=== PATIENT | male | born 1985 | race Caucasian/White ===

== ENCOUNTER 2022-11-09 19:46 | Emergency (ER) | payer SELFPAY ==
--- NOTE | 2022-11-09 20:43 | ER ---
Nurse's Notes [facility] Name: Abhinav Laboy Age: 37 yrs Sex: Male : 1985 Arrival Date: 11/09/2022 Time: 19:49 Bed 9 Private MD: Diagnosis: Sprain of ankle;Sprain of unspecified ligament of right ankle Presentation: 11/09 19:54 Chief complaint: Patient states: "I injured it on Tuesday, but I have not been able to tw5 put any weight on it since. I tried just taking care of it at home, wrapping it, putting ice on it, elevating it. It just isn't getting any better. I am worried that it might be broken.". Coronavirus screen: Vaccine status: Patient reports being unvaccinated. Ebola Screen: Patient negative for fever greater than or equal to 101.5 degrees Fahrenheit, and additional compatible Ebola Virus Disease symptoms Patient denies exposure to infectious person. Patient denies travel to an Ebola-affected area in the 21 days before illness onset. Initial Sepsis Screen: Does the patient meet any 2 criteria? HR > 90 bpm. Does the patient have a suspected source of infection? No. Patient's initial sepsis screen is negative. Risk Assessment: Do you want to hurt yourself or someone else? Patient reports no desire to harm self or others. Onset of symptoms was November 07, 2021. 19:54 Method Of Arrival: Wheelchair tw5 19:54 Acuity: PEPE 4 tw5 Triage Assessment: 19:56 General: Appears uncomfortable, Behavior is calm, cooperative, appropriate for age. tw5 Pain: Pain currently is 10 out of 10 on a pain scale. Musculoskeletal: Swelling present in right ankle. Historical: - Allergies: 19:56 No Known Allergies; tw5 - Home Meds: 19:56 None [Active]; tw5 - PMHx: 19:56 None; tw5 - PSHx: 19:56 None; tw5 - Immunization history:: Flu vaccine is not up to date. - Social history:: Smoking status: Patient reports the use of cigarette tobacco products, smokes one pack cigarettes per day. Reported history of juuling and/or vaping. Screenin:57 [facility] ED Fall Risk Assessment (Adult) History of falling in the last 3 months, tw5 including since admission. Abuse screen: Denies threats or abuse. Denies injuries from another. Nutritional screening: No deficits noted. Tuberculosis screening: No symptoms or risk factors identified. Assessment: 20:06 General: Appears in no apparent distress. uncomfortable, Behavior is calm, cooperative, eh3 appropriate for age. Pain: Complains of pain in right ankle. Neuro: Level of Consciousness is awake, alert, obeys commands, Oriented to person, place, time, situation. Cardiovascular: Capillary refill < 3 seconds Patient's skin is warm and dry. Respiratory: Airway is patent Respiratory effort is even, unlabored, Respiratory pattern is regular, symmetrical. GI: No signs and/or symptoms were reported involving the gastrointestinal system. : No signs and/or symptoms were reported regarding the genitourinary system. EENT: No signs and/or symptoms were reported regarding the EENT system. Derm: Bruising that is dark purple, on right leg and right ankle. Musculoskeletal: Circulation, motion, and sensation intact. Vital Signs: 19:54 BP 142 / 90; Pulse 96; Resp 18; Temp 99(O); Pulse Ox 99% ; Weight 113.4 kg; Height 6 tw5 ft. 3 in. (190.50 cm); Pain 10/10; 20:27 BP 121 / 72; Pulse 91; Resp 18; Pulse Ox 96% ; ls5 19:54 Body Mass Index 31.25 (113.40 kg, 190.50 cm) tw5 ED Course: 19:49 Patient arrived in ED. rg4 19:56 Triage completed. tw5 19:56 Arm band placed on. tw5 20:00 Kam Tolbert MD is Attending Physician. sp3 20:06 Patient has correct armband on for positive identification. Bed in low position. Call eh3 light in reach. Adult w/ patient. 20:40 Ankle Right 3 View XRAY In Process Unspecified. EDMS 20:43 Johnny Mcdonald MD is Referral Physician. sp3 20:53 Crutch training done. eh3 20:54 No provider procedures requiring assistance completed. Patient did not have IV access eh3 during this emergency room visit. Administered Medications: No medications were administered Medication: 20:54 VIS not applicable for this client. eh3 Outcome: 20:42 Discharge ordered by . sp3 20:53 Discharged to home with crutches. eh3 20:53 Condition: stable 20:53 Discharge instructions given to patient, Instructed on discharge instructions, follow up and referral plans. crutch walking, Demonstrated understanding of instructions, follow-up care, crutch walking. 20:54 Patient left the ED. 3 Signatures: Dispatcher [employer] Maribel Biswas rg4 Kam Tolbert MD MD sp3 Francesca Manuel tw5 Radha Camarillo RN RN 3 Robe Herring 5
--- NOTE | 2022-11-09 20:43 | EDPHYS ---
Physician Documentation [facility] Name: Abhinav Laboy Age: 37 yrs Sex: Male : 1985 Arrival Date: 11/09/2022 Time: 19:49 Bed 9 Private MD: ED Physician Kam Tolbert HPI: 11/09 20:36 This 37 yrs old Male presents to ER via Wheelchair with complaints of Ankle Injury. sp3 20:36 37-year-old male with no significant past medical history presents with right ankle sp3 pain and swelling and ecchymosis for the last 2 days. Patient was outside playing with kids and dog and states he "found a hole" and his foot went in and rolled his ankle. No prior injury to that ankle noted. She denies any foot pain or knee pain. He has not been able to place weight on it. No other symptoms and ROS otherwise negative.. Historical: - Allergies: 19:56 No Known Allergies; tw5 - Home Meds: 19:56 None [Active]; tw5 - PMHx: 19:56 None; tw5 - PSHx: 19:56 None; tw5 - Immunization history:: Flu vaccine is not up to date. - Social history:: Smoking status: Patient reports the use of cigarette tobacco products, smokes one pack cigarettes per day. Reported history of juuling and/or vaping. ROS: 20:40 Constitutional: Negative for fever, chills, and weight loss, Cardiovascular: Negative sp3 for chest pain, palpitations, and edema, Respiratory: Negative for shortness of breath, cough, wheezing, and pleuritic chest pain, Skin: Negative for injury, rash, and discoloration, Neuro: Negative for headache, weakness, numbness, tingling, and seizure. 20:40 All other systems are negative. Exam: 20:40 Constitutional: This is a well developed, well nourished patient who is awake, alert, sp3 and in no acute distress. Skin: Warm, dry with normal turgor. Normal color with no rashes, no lesions, and no evidence of cellulitis. Neuro: Awake and alert, GCS 15, oriented to person, place, time, and situation. Cranial nerves II-XII grossly intact. Motor strength 5/5 in all extremities. Sensory grossly intact. Cerebellar exam normal. Normal gait. 20:40 Musculoskeletal/extremity: Sprain ankle swelling noted with ecchymoses bilaterally at the base of the feet posteriorly in the calcaneal area. There is no pain to the calcaneus. No pain over the fifth metatarsal. DP pulse and neurological exam are normal. Proximal knee exam is normal as well.. Vital Signs: 19:54 BP 142 / 90; Pulse 96; Resp 18; Temp 99(O); Pulse Ox 99% ; Weight 113.4 kg; Height 6 tw5 ft. 3 in. (190.50 cm); Pain 10/10; 20:27 BP 121 / 72; Pulse 91; Resp 18; Pulse Ox 96% ; ls5 19:54 Body Mass Index 31.25 (113.40 kg, 190.50 cm) tw5 MDM: 20:27 Patient medically screened. sp3 20:41 Data reviewed: vital signs, nurses notes. ED course: -year-old male with right ankle sp3 injury. X-rays demonstrate no acute fracture. Will place patient in proper [place] wrap, give crutches, and have him follow-up with orthopedics. No work for 1 week.. 11/09 20:02 Order name: Ankle Right 3 View XRAY sp3 11/09 20:53 Order name: Crutches; Complete Time: 20:53 eh3 Administered Medications: No medications were administered Disposition Summary: 11/09/22 20:42 Discharge Ordered Location: Home sp3 Condition: Stable sp3 Diagnosis - Sprain of ankle sp3 - Sprain of unspecified ligament of right ankle sp3 Followup: sp3 - With: Johnny Mcdonald MD - When: Upon discharge from the Emergency Department - Reason: Continuance of care Discharge Instructions: - Discharge Summary Sheet sp3 - Ankle Sprain sp3 - Crutch Use, Adult sp3 Forms: - Medication Reconciliation Form sp3 - Thank You Letter sp3 - Antibiotic Education sp3 - Prescription Opioid Use sp3 - Work release form vc1 Signatures: Dispatcher [employer] Kam Stone MD MD sp3 Francesca Manuel tw5 Radha Camarillo RN RN 3
--- NOTE | 2022-11-09 20:47 | RAD REPORT ---
EXAM DESCRIPTION: RAD - Ankle Right 3 View - 11/09/2022 8:38 pm CLINICAL HISTORY: SMASH INJURY COMPARISON: Ankle Right 3 View dated 12/15/2016 FINDINGS/IMPRESSION: No fracture identified. Mild lateral clear space widening could be projectional or, less likely, represent a syndesmotic injury.
[2022-11-09 21:16] VITALS: TEMP 99
[2022-11-09 21:18] VITALS: BP 121/72; O2SAT 96
== END 2022-11-09 20:54 | disposition home or self-care (01) ==
LOC: ER 19:46
DX: S93.401A Sprain of unspecified ligament of right ankle, initial encounter (principal); F17.210 Nicotine dependence, cigarettes, uncomplicated
CPT/HCPCS: 99283

== ENCOUNTER 2022-11-23 12:54 | Emergency (ER) | payer SELFPAY ==
--- OUTSIDE RECORDS SUMMARY | 2022-11-23 12:57 | XMS REPORT | Continuity of Care Document ---
:1985 Author Organization [facility] t Address [address] [place] [address] [address] [place] [address] Care Team Providers Name Role Phone Cari Dunn Attending Clinician Ekaterina Obrien Attending Clinician Payers Payer Name Policy Type Policy Number Effective Date Expiration Date S ource Problems This patient has no known problems. Allergies, Adverse Reactions, Alerts Allergy Allergy Status Severity Reaction(s) Onset Inactive Treating Comm ents Source Name Type Date Date Clinician NO KNOWN Drug Active [facility]ERGIE [facility] Social History Social Habit Start Date Stop Date Quantity Comments Source Sex Assigned At [facility] Smoking Status Start Date Stop Date Source Unknown if ever smoked [facility] Medications Ordered Filled Start Stop Current Ordering Indication Dosage Frequency Signature Comments Components Source Medication Medication Date Date Medication? Clinician (SIG) Name Name cephALEXin 2019- No 500mg 500 mg, Un br[place] (KEFLEX) 02-25 Oral, ity of capsule 500 05:00: 04:09 [place]CE[place] 1 [place] 00 :00 dose, [facility] 02/26/20 at Branch 0000, MIGUEL
Re ason for Anti-Infec tive: Documented Infection< br>Documen sam Infection Site: Skin / Soft Tissue
Duration of Therapy: 10 days ibuprofen 2020- No 600mg 600 mg, Uni vers (IBU) 02-25 Oral, ity of tablet 600 05:00: 04:09 ONCE, 1 [place] mg 00 :00 dose, [facility] 02/26/20 at [place] 0000, MIGUEL ibuprofen 2019- Yes [id number] 600mg Take 1 Univers 600 mg 4-20 tablet by ity of tablet 00:00: mouth [place] 00 every 6 Medical (six) Branch hours as needed for Pain (scale 4-6). cephALEXin 2019- No [id number] 500mg Take 1 Univers (KEFLEX) 4-20 - capsule by ity of 500 mg 00:00: 04:59 mouth 3 [place] capsule 00 :00 (three) Medical times Branch daily for 10 days. ibuprofen 2019- No 600mg 600 mg, Uni vers (IBU) 16 11-22 Oral, ity of tablet 600 01:00: 00:08 ONCE, 1 [place] mg 00 :00 dose, Wed Medical 11/21/19 at Branch 1900, MIGUEL benzonatate 2019- Yes [id number] 100mg Take 1 Univers 100 mg 1-15 capsule by ity of capsule 00:00: mouth 3 00 (three) Medical times Branch daily as needed for Cough. benzonatate 2019- Yes [id number] 100mg Take 1 Univers 100 mg 1-15 capsule by ity of capsule 00:00: mouth 3 (three) Medical times Branch daily as needed for Cough. Vital Signs Vital Name Observation Time Observation Value Comments Source Systolic blood 2020-02-26 04:00:00 129 mm[Hg] [facility]iver [facility] Diastolic blood 2020-02-26 04:00:00 86 mm[Hg] Unive [facility] Heart rate 2020-02-26 04:00:00 82 /min [facility] Respiratory rate 2020-02-26 04:00:00 20 /min [facility] Oxygen saturation in 2020-02-26 04:00:00 97 /min [facility] Arterial blood by [facility] Pulse oximetry Branch Body temperature 2020-02-26 02:58:00 37.78 Heike [facility] Body weight 2020-02-26 02:58:00 108.863 kg [facility] BMI 2020-02-26 02:58:00 29.21 kg/m2 [facility] Systolic blood 2019-11-22 00:25:00 144 mm[Hg] [facility]iver [facility] Diastolic blood 2019-11-22 00:25:00 74 mm[Hg[facility] 2019-11-22 00:25:00 108 /min [facility] Body temperature 2019-11-22 00:25:00 38.89 Heike [facility] Respiratory rate 2019-11-22 00:25:00 18 /min [facility] Oxygen saturation in 2019-11-22 00:25:00 100 /min [facility] blood by [facility] Pulse oximetry Branch Body height 2019-11-21 21:59:00 193 cm Universi ty [facility] Body weight 2019-11-21 21:59:00 108.863 kg Universi ty [facility] BMI 2019-11-21 21:59:00 29.21 kg/m2 [facility] Procedures Procedure Date / Time Performed Performing Clinician Sour e RAPID STREP SCREEN 2019-11-21 23:23:00 Ekaterina Soliman [facility] FOR GROUP A Medical Branch CONSENT/REFUSAL FOR 2019-11-21 22:21:02 Doctor Unassigned, No [facility] DIAGNOSIS AND Name [facility] TREATMENT ADC,CLC OR LCC ONLY - 2019-11-21 22:01:[address] [facility] INFLUENZA A & B [facility] DIRECT ANTIGEN NOTICE OF PRIVACY 2019-11-21 21:47:10 Doctor Unassigned, No [facility] PRACTICES Name [facility] Encounters Start End Encounter Admission Attending Care Care Encounter Source Date/Time Date/Time Type Type Clinicians Facility Department ID 2020-02-25 2020-02-25 Emergency Cari Braga [facility] [id number] Univers 21:59:46 23:17:00 Marcela Moreland [id number] i ty of [place] [id number] [facility] [id number] [facility] 084 Branch 2020-02-25 2020-02-25 Emergency X [facility] ERT [id number] Univers 21:52:00 21:52:00 ity of [facility] 2019-11-21 2019-11-21 Emergency PJ Soliman [id number] Univers 16:51:02 18:27:00 Ekaterina Moreland [id number] i ty of [place] [id number] [facility] [id number] [address] Results Test Description Test Time Test Comments Results Result Comments Source RAPID STREP SCREEN FOR GROUP A 2019-11-21 23:46:00 Test Item Value Reference Range Interpretation Comme nts Streptococcus pyogenes (group A) antigen (test code = 87425- 2) Negative Negative Lab Interpretation (test code = 85713-0) [facility] - INFLU[facility]ZA A & B DIRECT [id number] 22:31:00 Test Item Value Reference Range Interpretation Comments Influenza A (test code = 92819-3) Negative Negative Influenza B (test code = 18079-1) Positive Negative A Lab Interpretation (test code = Abnormal 07422-1) [facility]
--- NOTE | 2022-11-23 13:02 | EDPHYS ---
Physician Documentation [facility] Name: Abhinav Laboy Age: 37 yrs Sex: Male : 1985 Arrival Date: 11/23/2022 Time: 12:56 Bed Waiting Private MD: ED Physician Brayan Meehan HPI: 11/23 13:09 This 37 yrs old Male presents to ER via Ambulatory with complaints of work release. kb 13:09 Pt reports he rolled his ankle on 11/07, was seen and diagnosed with a sprain on 11/09. He kb went back to work and they said he needed to stay out for a week because he didn't have full ROM of his ankle. The week is up and work told him he had to come back here for another work release. . Severity of symptoms: At their worst the symptoms were moderate in the emergency department the symptoms are unchanged. The patient has not experienced similar symptoms in the past. The patient has not recently seen a physician. Historical: - Allergies: 13:00 No Known Allergies; aa5 - PMHx: 13:00 None; aa5 - PSHx: 13:00 None; aa5 - Immunization history:: Adult Immunizations unknown. - Social history:: Smoking status: Patient reports the use of cigarette tobacco products, smokes one pack cigarettes per day. ROS: 13:08 Constitutional: Negative for fever, chills, and weight loss. kb 13:08 All other systems are negative. Exam: 13:08 Constitutional: This is a well developed, well nourished patient who is awake, alert, kb and in no acute distress. Head/Face: Normocephalic, atraumatic. ENT: Moist Mucous membranes Respiratory: Respirations even and unlabored. No increased work of breathing. Talking in full sentences Skin: Warm, dry with normal turgor. Normal color. MS/ Extremity: Pulses equal, no cyanosis. Neurovascular intact. Full, normal range of motion. Neuro: Awake and alert, GCS 15, oriented to person, place, time, and situation. Moves all extremities. Normal gait. Vital Signs: 12:59 BP 143 / 98; Pulse 103; Resp 18 S; Temp 98.9(TE); Pulse Ox 99% on R/A; aa5 MDM: 12:59 Patient medically screened. kb 13:08 Data reviewed: vital signs, nurses notes. Counseling: I had a detailed discussion with kb the patient and/or guardian regarding: the historical points, exam findings, and any diagnostic results supporting the discharge/admit diagnosis, the need for outpatient follow up, a family practitioner, to return to the emergency department if symptoms worsen or persist or if there are any questions or concerns that arise at home. Administered Medications: No medications were administered Disposition: 16:59 Co-signature as Attending Physician, Brayan Meehan MD I reviewed the patient's care rt provided by the Advanced Practice Provider and agree with the diagnosis and treatment plan. Disposition Summary: 11/23/22 13:01 Discharge Ordered Location: Home kb Condition: Stable kb Diagnosis - Encounter for issue of other medical certificate - work note(11/23/22 13:01) kb Followup: kb - With: Emergency Department - When: As needed - Reason: Worsening of condition Followup: kb - With: Private Physician - When: 2 - 3 days - Reason: Recheck today's complaints, Continuance of care, Re-evaluation by your physician Discharge Instructions: - Discharge Summary Sheet kb Forms: - Work release form kb - Medication Reconciliation Form kb - Thank You Letter kb - Antibiotic Education kb - Prescription Opioid Use kb Signatures: Tammy Burnett, ROSHNI-C ROSHNI-Velma Lau, RN RN aa5 Brayan Meehan MD MD rt Corrections: (The following items were deleted from the chart) 13:01 13:01 Encounter for issue of other medical certificate kb kb
--- NOTE | 2022-11-23 13:02 | ER ---
Nurse's Notes [facility] Name: Abhinav Laboy Age: 37 yrs Sex: Male : 1985 Arrival Date: 11/23/2022 Time: 12:56 Bed Waiting Private MD: Diagnosis: Encounter for issue of other medical certificate-work note Presentation: 11/23 12:59 Chief complaint: Patient states: "I just need another work release so I can go back to aa5 work". Reports being seen here 11/09/22 and reports rolled ankle on 11/07/22, no new injury. 12:59 Coronavirus screen: At this time, the client does not indicate any symptoms associated aa5 with coronavirus-19. Ebola Screen: Patient denies travel to an Ebola-affected area in the 21 days before illness onset. Initial Sepsis Screen: Does the patient meet any 2 criteria? No. Patient's initial sepsis screen is negative. Does the patient have a suspected source of infection? No. Patient's initial sepsis screen is negative. Risk Assessment: Do you want to hurt yourself or someone else? Patient reports no desire to harm self or others. Onset of symptoms was November 07, 2022. 12:59 Acuity: PEPE 5 aa5 12:59 Method Of Arrival: Ambulatory aa5 Historical: - Allergies: 13:00 No Known Allergies; aa5 - PMHx: 13:00 None; aa5 - PSHx: 13:00 None; aa5 - Immunization history:: Adult Immunizations unknown. - Social history:: Smoking status: Patient reports the use of cigarette tobacco products, smokes one pack cigarettes per day. Assessment: 13:03 Reassessment: Patient is alert, oriented x 3, equal unlabored respirations, skin aa5 warm/dry/pink. Vital Signs: 12:59 BP 143 / 98; Pulse 103; Resp 18 S; Temp 98.9(TE); Pulse Ox 99% on R/A; aa5 ED Course: 12:56 Patient arrived in ED. am2 12:59 Tammy Burnett FNP-C [facility]. kb 12:59 Brayan Meehan MD is Attending Physician. kb 12:59 Triage completed. aa5 12:59 Arm band placed on. aa5 13:04 No provider procedures requiring assistance completed. Patient did not have IV access aa5 during this emergency room visit. Administered Medications: No medications were administered Medication: 13:03 VIS not applicable for this client. aa5 Outcome: 13:01 Discharge ordered by . rich 13:03 Discharged to home ambulatory. aa5 13:03 Condition: good 13:03 Discharge instructions given to patient, Instructed on discharge instructions, follow up and referral plans. Demonstrated understanding of instructions, follow-up care. 13:04 Patient left the ED. aa5 Signatures: Tammy Burnett FNP-C FNP-Velma Lau, RN RN aa5 Darling Crowley am2 Corrections: (The following items were deleted from the chart) 13:02 12:59 Chief complaint: Patient states: "I just need another work release so I can go aa5 back to work" aa5 13:02 12:59 Pulse 103bpm; Resp 18bpm; Spontaneous; Pulse Ox 99% RA; Temp 98.9F Temporal; aa5 aa5
[2022-11-23 13:08] VITALS: BP 143/98; TEMP 98.9; O2SAT 99
== END 2022-11-23 13:04 | disposition home or self-care (01) ==
LOC: ER 12:54
DX: Z02.79 Encounter for issue of other medical certificate (principal)

== ENCOUNTER 2023-06-27 18:01 | Emergency (ER) | payer SELFPAY ==
--- OUTSIDE RECORDS SUMMARY | 2023-06-27 18:04 | XMS REPORT | Continuity of Care Document ---
:1985 Author Organization [facility] t Address [address] [facility] [address] [place] [id number] Care Team Providers Name Role Phone Cari Dunn Attending Clinician Ekaterina Obrien Attending Clinician Payers Payer Name Policy Type Policy Number Effective Date Expiration Date S ource Problems This patient has no known problems. Allergies, Adverse Reactions, Alerts Allergy Allergy Status Severity Reaction(s) Onset Inactive Treating Comm ents Source Name Type Date Date Clinician NO KNOWN Drug Active [facility] ALLERGIE Class ity of [facility] Social History Social Habit Start Date Stop Date Quantity Comments Source Sex Assigned At [facility] Smoking Status Start Date Stop Date Source Unknown if ever smoked [facility] Medications Ordered Filled Start Stop Current Ordering Indication Dosage Frequency Signature Comments Components Source Medication Medication Date Date Medication? Clinician (SIG) Name Name cephALEXin 2019- No 500mg 500 mg, Un brando (KEFLEX) 02-25 Oral, ity of capsule 500 05:00: 04:09 [place] :00 dose, [facility] 02/26/20 at Branch 0000, MIGUEL
Re ason for Anti-Infec tive: Documented Infection< br>Documen sam Infection Site: Skin / Soft Tissue
Duration of Therapy: 10 days ibuprofen 2020- No 600mg 600 mg, Uni vers (IBU) 02-25 Oral, ity of tablet 600 05:00: 04:09 ONCE, 1 [place] as mg 00 :00 dose, [facility] 02/26/20 at [place] 0000, MIGUEL ibuprofen 2019- Yes [id number] 600mg Take 1 Univers 600 mg 4-20 tablet by ity of tablet 00:00: mouth [place] 00 every 6 Medical (six) Branch hours as needed for Pain (scale 4-6). cephALEXin 2019- No [id number] 500mg Take 1 Univers (KEFLEX) 4-20 - [...] at Branch 1900, MIGUEL benzonatate 2019- Yes [id number] 100mg Take 1 Univers 100 mg 1-15 capsule by ity of capsule 00:00: mouth 3 00 (three) Medical times Branch daily as needed for Cough. benzonatate 2019- Yes [id number] 100mg Take 1 Univers 100 mg 1-15 capsule by ity of capsule 00:00: mouth 3 (three) Medical times Branch daily as needed for Cough. Vital Signs Vital Name Observation Time Observation Value Comments Source Systolic blood 2020-02-26 04:00:00 129 mm[Hg] Univer sity [facility] Diastolic blood 2020-02-26 04:00:00 86 mm[Hg] Unive [facility] Heart rate 2020-02-26 04:00:00 82 /min [facility] Respiratory rate 2020-02-26 04:00:00 20 /min [facility] Oxygen saturation in 2020-02-26 04:00:00 97 /min [facility] Arterial blood by [facility] Pulse oximetry Branch Body temperature 2020-02-26 02:58:00 37.78 Heike [facility] Body weight 2020-02-26 02:58:00 108.863 kg [facility] BMI 2020-02-26 02:58:00 29.21 kg/m2 [facility] Systolic blood 2019-11-22 00:25:00 144 mm[Hg] Univer sity [facility] Diastolic blood 2019-11-22 00:25:00 74 mm[facility]Hg[facility] 2019-11-22 00:25:00 108 /min [facility] Body temperature 2019-11-22 00:25:00 38.89 Heike [facility] Respiratory rate 2019-11-22 00:25:00 18 /min [facility] Oxygen saturation in 2019-11-22 00:25:00 100 /min [facility] blood by [facility] Pulse oximetry Branch Body height 2019-11-21 21:59:00 193 cm Universi ty [facility] Body weight 2019-11-21 21:59:00 108.863 kg Universi ty [facility] BMI 2019-11-21 21:59:00 29.21 kg/m2 [facility] Procedures Procedure Date / Time Performed Performing Clinician Sour e RAPID STREP SCREEN 2019-11-21 23:23:00 Ekaterina Soliman [facility] FOR GROUP A Medical Branch CONSENT/REFUSAL FOR 2019-11-21 22:21:02 Doctor Un[facility]igned[facility] DI[facility]NOSIS AND Name [facility] TREATMENT ADC,CLC OR LCC ONLY - 2019-11-21 22:01:00 Radha Hawkins [facility] INFLUENZA A & B [facility] DIRECT ANTIGEN NOTICE OF PRIVACY 2019-11-21 21:47:10 Doctor Unassigned, No [facility] PRACTICES Name [facility] Encounters Start End Encounter Admission Attending Care Care Encounter Source Date/Time Date/Time Type Type Clinicians Facility Department ID 2020-02-25 2020-02-25 Emergency Cari Braga [facility] [[email or web address] [id number] Univers 21:59:46 23:17:00 Marcela Moreland [id number] i ty of [place] [id number] [facility] [id number] [facility] 084 Branch 2020-02-25 2020-02-25 Emergency X [facility] ERT [id number] Univers 21:52:00 21:52:00 ity of [facility] 2019-11-21 2019-11-21 Emergency PJ Soliman [id number] Univers 16:51:02 18:27:00 Ekaterina Moreland [id number] i ty [facility] [place] [id number] [facility] [id number] [address] Results Test Description Test Time Test Comments Results Result Comments Source RAPID STREP SCREEN FOR GROUP A 2019-11-21 23:46:00 Test Item Value Reference Range Interpretation Comme nts Streptococcus pyogenes (group A) antigen (test code = 46514- 2) Negative Negative Lab Interpretation (test code = 20198-5) [facility] - INFLU[facility]ZA A & B DIRECT [id number] 22:31:00 Test Item Value Reference Range Interpretation Comments Influenza A (test code = 98635-0) Negative Negative Influenza B (test code = 14485-7) Positive Negative A Lab Interpretation (test code = Abnormal 15381-4) [facility]
[2023-06-27] MEDS ORDERED: KETOROLAC 30 MG/ML INJ ONE (19:52)
[2023-06-27 20:00] LABS: Absolute Lymphocytes (CBC) 2.5 K/uL (0.7-4.9); Hematocrit 45.7 % (39.6-49.0); Lymphocytes % 23.2 % (15.3-44.8); MCV 83.6 fL (80-100); Platelets 320 thou/uL (152-406); RBC Red Blood Cell Count 5.46 M/uL (4.33-5.43)
[2023-06-27 20:21] LABS: Albumin 3.7 g/dL (3.4-5.0); Bilirubin Total 0.2 mg/dL (0.2-1.0); Protein, Total 8.5 g/dL (6.4-8.2)
[2023-06-27] MEDS ORDERED: NA CHLORIDE 0.9% 1,000 ML ONE (20:34)
--- NOTE | 2023-06-27 21:01 | RAD REPORT ---
EXAM DESCRIPTION: CT - Abdomen Pelvis W Contrast - 06/27/2023 8:41 pm CLINICAL HISTORY: Abdominal pain COMPARISON: none. TECHNIQUE: Computed axial tomography of the abdomen pelvis was obtained. 100 cc Isovue-300 was admin istered intravenously. Oral contrast was not requested which limits evaluation of bowel and appendix All CT scans are performed using dose optimization technique as appropriate and may include automated exposure control or mA/KV adjustment according to patient size. FINDINGS: The liver, pancreas, adrenal and kidneys appear unremarkable. Splenic granulomata 5 centimeter area of wall thickening involves the ascending colon. Stranding within the adjacent fat. Several lymph nodes medially. Largest 13 x 10 millimeters. Normal appendix. No free air Small to moderate umbilical hernia IMPRESSION: 5 centimeter area of wall thickening involves the ascending colon. This is suspicious fo r neoplasm. Colitis can also have this appearance. Direct visualization is recommended Mild adjacent lymphadenopathy
--- NOTE | 2023-06-27 21:14 | ER ---
Nurse's Notes [facility] Name: Abhinav Laboy Age: 38 yrs Sex: Male : 1985 Arrival Date: 06/27/2023 Time: 18:01 Bed 11 Private MD: Diagnosis: Indeterminate colitis Presentation: 06/27 18:33 Chief complaint: Patient states: R sided abdominal pain for 3 weeks. Loose stools, no ll1 fever. Coronavirus screen: Vaccine status: Patient reports being unvaccinated. Client denies travel out of the [place] in the last 14 days. At this time, the client does not indicate any symptoms associated with coronavirus-19. Ebola Screen: Patient denies travel to an Ebola-affected area in the 21 days before illness onset. Initial Sepsis Screen: Does the patient meet any 2 criteria? No. Patient's initial sepsis screen is negative. Does the patient have a suspected source of infection? Yes: Acute abdominal pain. Risk Assessment: Do you want to hurt yourself or someone else? Patient reports no desire to harm self or others. Onset of symptoms was June 07, 2023. 18:33 Method Of Arrival: Ambulatory [facility] 18:33 Acuity: PEPE 3 ll1 Historical: - Allergies: 18:35 No Known Allergies; ll1 - PMHx: 18:35 None; ll1 - PSHx: 18:35 None; ll1 - Immunization history:: Client reports having NOT received the Covid vaccine. - Social history:: Smoking status: Patient reports the use of cigarette tobacco products, smokes one pack cigarettes per day. - Family history:: not pertinent. Assessment: 20:27 General: Appears in no apparent distress. Behavior is calm, cooperative. Pain: mb9 Complains of pain in abdomen Pain radiates to RLQ Pain currently is 8 out of 10 on a pain scale. Pain began 2 weeks ago. 20:29 Neuro: Hernandez Agitation-Sedation Scale (RASS): 0 - Alert and Calm Level of mb9 Consciousness is awake, alert, obeys commands, Oriented to person, place, time, situation, Appropriate for age. Cardiovascular: Patient's skin is warm and dry. Respiratory: Airway is patent Respiratory effort is even, unlabored, Respiratory pattern is regular, symmetrical. GI: Abdomen is flat, non-distended, Bowel sounds present X 4 quads. Abd is soft Abdomen is tender to palpation in right lower quadrant Patient currently denies diarrhea, pain, vomiting. : No signs and/or symptoms were reported regarding the genitourinary system. EENT: No signs and/or symptoms were reported regarding the EENT system. Derm: Skin is pink, warm \T\ dry. Musculoskeletal: Range of motion: intact in all extremities. Vital Signs: 18:33 BP 143 / 86; Pulse 92; Resp 17; Temp 98; Pulse Ox 97% ; Height 6 ft. 3 in. ; Pain 8/10; ll1 20:30 BP 117 / 84; Pulse 78; Resp 18; Pulse Ox 100% on R/A; mb9 21:20 BP 117 / 79; Pulse 81; Resp 16; Pulse Ox 100% ; Pain 6/10; sm8 18:33 Pain Scale: Adult ll1 21:20 Pain Scale: Adult sm8 ED Course: 18:02 Patient arrived in ED. rg4 18:04 Tejal Jorgensen MD is Attending Physician. cp3 18:35 Triage completed. ll1 18:35 Arm band placed on. ll1 19:45 Inserted saline lock: 20 gauge in left forearm, using aseptic technique. Blood wm collected. 19:52 CBC with Diff Sent. kl 19:52 CMP Sent. kl 19:52 Lipase Sent. kl 20:27 Cassidy Sandoval, DANDY is Primary Nurse. mb9 20:43 CT Abd/Pelvis - IV Contrast Only In Process Unspecified. EDMS 21:12 Sukhi Cruz MD is Referral Physician. cp3 21:26 No provider procedures requiring assistance completed. IV discontinued, intact, mb9 bleeding controlled, No redness/swelling at site. Pressure dressing applied. Administered Medications: 19:51 Drug: TORadol - Ketorolac IVP 15 mg Route: IVP; Site: left forearm; kl 21:27 Follow up: Response: No adverse reaction mb9 20:27 Drug: NS 0.9% IV 1000 ml Route: IV; Rate: 1 bolus; Site: left forearm; mb9 21:27 Follow up: Response: No adverse reaction; IV Status: Completed infusion mb9 Outcome: 21:13 Discharge ordered by . cp3 21:26 Discharged to home ambulatory. mb9 21:26 Condition: stable 21:26 Discharge instructions given to patient, Instructed on discharge instructions, follow up and referral plans. Demonstrated understanding of instructions, follow-up care, medications, Prescriptions given X 2. 21:27 Patient left the ED. mb9 Signatures: Dispatcher [employer] Kristina La RN RN kl Pinckney, Cwanza, MD MD cp3 Dewey, Maribel rg4 Shi Paz RN RN ll1 Sonya Spivey, Cassidy Rodriguez RN RN mb9 Flower Williamson 8 Corrections: (The following items were deleted from the chart) 20:30 20:27 Pain: Complains of pain in abdomen Pain radiates to RLQ Pain currently is 8 out mb9 of 10 on a pain scale. Pain began 2 weeks ago mb9
--- NOTE | 2023-06-27 21:14 | EDPHYS ---
Physician Documentation [facility] Name: Abhinav Laboy Age: 38 yrs Sex: Male : 1985 Arrival Date: 06/27/2023 Time: 18:01 Bed 11 Private MD: ED Physician Tejal Jorgensen HPI: 06/27 21:17 This 38 yrs old Male presents to ER via Ambulatory with complaints of Abdominal Pain. cp3 21:17 Patient is a 38-year-old male with right lower abdominal pain started roughly 2 weeks cp3 ago. Pain is rated as 5 out of 10 nonradiating and localized to the right mid abdomen. No associated nausea, vomiting, diarrhea. Historical: - Allergies: 18:35 No Known Allergies; ll1 - PMHx: 18:35 None; ll1 - PSHx: 18:35 None; ll1 - Immunization history:: Client reports having NOT received the Covid vaccine. - Social history:: Smoking status: Patient reports the use of cigarette tobacco products, smokes one pack cigarettes per day. - Family history:: not pertinent. ROS: 21:17 Constitutional: Negative for fever, chills, and weight loss, Eyes: Negative for injury, cp3 pain, redness, and discharge, ENT: Negative for injury, pain, and discharge, Neck: Negative for injury, pain, and swelling, Cardiovascular: Negative for chest pain, palpitations, and edema, Respiratory: Negative for shortness of breath, cough, wheezing, and pleuritic chest pain, Back: Negative for injury and pain, : Negative for injury, bleeding, discharge, and swelling, MS/Extremity: Negative for injury and deformity, Skin: Negative for injury, rash, and discoloration, Neuro: Negative for headache, weakness, numbness, tingling, and seizure. 21:17 Abdomen/GI: Positive for abdominal pain. cp3 Exam: 21:17 Constitutional: This is a well developed, well nourished patient who is awake, alert, cp3 and in no acute distress. Head/Face: Normocephalic, atraumatic. Eyes: Pupils equal round and reactive to light, extra-ocular motions intact. Lids and lashes normal. Conjunctiva and sclera are non-icteric and not injected. Cornea within normal limits. Periorbital areas with no swelling, redness, or edema. ENT: Nares patent. No nasal discharge, no septal abnormalities noted. Tympanic membranes are normal and external auditory canals are clear. Oropharynx with no redness, swelling, or masses, exudates, or evidence of obstruction, uvula midline. Mucous membranes moist. Neck: Trachea midline, no thyromegaly or masses palpated, and no cervical lymphadenopathy. Supple, full range of motion without nuchal rigidity, or vertebral point tenderness. No Meningismus. Chest/axilla: Normal chest wall appearance and motion. Nontender with no deformity. No lesions are appreciated. Cardiovascular: Regular rate and rhythm with a normal S1 and S2. No gallops, murmurs, or rubs. Normal PMI, no JVD. No pulse deficits. Respiratory: Lungs have equal breath sounds bilaterally, clear to auscultation and percussion. No rales, rhonchi or wheezes noted. No increased work of breathing, no retractions or nasal flaring. Back: No spinal tenderness. No costovertebral tenderness. Full range of motion. Male : Normal genitalia with no discharge or lesions. Skin: Warm, dry with normal turgor. Normal color with no rashes, no lesions, and no evidence of cellulitis. MS/ Extremity: Pulses equal, no cyanosis. Neurovascular intact. Full, normal range of motion. Neuro: Awake and alert, GCS 15, oriented to person, place, time, and situation. Cranial nerves II-XII grossly intact. Motor strength 5/5 in all extremities. Sensory grossly intact. Cerebellar exam normal. Normal gait. Psych: Awake, alert, with orientation to person, place and time. Behavior, mood, and affect are within normal limits. 21:17 Abdomen/GI: Palpation: moderate abdominal tenderness, in the right upper quadrant. Vital Signs: 18:33 BP 143 / 86; Pulse 92; Resp 17; Temp 98; Pulse Ox 97% ; Height 6 ft. 3 in. ; Pain 8/10; ll1 20:30 BP 117 / 84; Pulse 78; Resp 18; Pulse Ox 100% on R/A; mb9 21:20 BP 117 / 79; Pulse 81; Resp 16; Pulse Ox 100% ; Pain 6/10; sm8 18:33 Pain Scale: Adult ll1 21:20 Pain Scale: Adult sm8 MDM: 18:52 Patient medically screened. cp3 21:17 Differential diagnosis: Appendicitis, gallbladder disease, colitis. Data reviewed: cp3 vital signs, nurses notes, lab test result(s), radiologic studies, CT scan. Consideration of Admission/Observation Escalation of care including admission/observation considered. I considered the following discharge prescriptions or medication management in the emergency department Medications were administered in the Emergency Department. See MAR. Response to treatment: the patient's symptoms have markedly improved after treatment. 06/27 19:25 Order name: CBC with Diff; Complete Time: 20:04 cp3 06/27 19:25 Order name: CMP; Complete Time: 21:01 cp3 06/27 19:25 Order name: Lipase; Complete Time: 21:01 cp3 06/27 19:25 Order name: CT Abd/Pelvis - IV Contrast Only; Complete Time: 21:05 cp3 06/27 19:25 Order name: IV Saline Lock; Complete Time: 19:52 cp3 06/27 19:25 Order name: Labs collected and sent; Complete Time: 19:55 cp3 Administered Medications: 19:51 Drug: TORadol - Ketorolac IVP 15 mg Route: IVP; Site: left forearm; kl 21:27 Follow up: Response: No adverse reaction mb9 20:27 Drug: NS 0.9% IV 1000 ml Route: IV; Rate: 1 bolus; Site: left forearm; mb9 21:27 Follow up: Response: No adverse reaction; IV Status: Completed infusion mb9 Disposition Summary: 06/27/23 21:13 Discharge Ordered Location: Home cp3 Condition: Stable cp3 Diagnosis - Indeterminate colitis cp3 Followup: cp3 - With: Sukhi Cruz MD - When: - Reason: Recheck today's complaints Discharge Instructions: - Discharge Summary Sheet cp3 - Colitis cp3 Forms: - Medication Reconciliation Form cp3 - Thank You Letter cp3 - Antibiotic Education cp3 - Prescription Opioid Use cp3 - Patient Portal Instructions cp3 - Leadership Thank You Letter cp3 Prescriptions: - ketorolac 10 mg Oral tablet - take 1 tablet by ORAL route every 8 hours for 5 days as needed for pain; 15 cp3 tablet; Refills: 0, Product Selection Permitted - Flagyl 500 mg Oral Tablet - take 1 tablet by ORAL route every 12 hours for 7 days; 14 tablet; Refills: 0, cp3 Product Selection Permitted Signatures: Dispatcher [employer] Kristina La, RN RN kl Joslyn, MD SANDY Toure cp3 Shi Paz RN RN ll1 Lori, Cassidy Rodriguez RN RN mb9
[2023-06-27 22:01] VITALS: TEMP 98
[2023-06-27 22:02] VITALS: O2SAT 100
[2023-06-27 22:03] VITALS: BP 117/79
== END 2023-06-27 21:27 | disposition home or self-care (01) ==
LOC: ER 18:01
DX: K52.3 Indeterminate colitis (principal)
CPT/HCPCS: 36415; 74177; 80053; 83690; 85025; 96361; 96374; 99284; J7030; Q9967

== ENCOUNTER 2025-01-27 21:57 | Emergency (ER) | payer BC, SELFPAY ==
--- OUTSIDE RECORDS SUMMARY | 2025-01-27 22:01 | XMS REPORT | Clinical Summary ---
Author Name Unknown Organization [facility] Address [address] [place] [address] Care Team Providers Care Ratoprinter Name Role Phone Arcelia Lemus APRN Primary Care Provider [phone] Ny Quijano MD Unavailable [phone] Ny Quijano MD Unavailable [phone] Allergies No known active allergies Medications * This document contains information received from the source organization and may not represent a complete record from that organization. 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 Date Type Department Care Team Description 05/28/2024 Lab Requisition [facility] C[facility]TR[facility] Rui Jeffery MD Qiu, Suimin, MD 05/23/2024 3:30 PM CDT Follow-Up [facility] - Medical Oncology [address] [place] [phone] Martinez Coy, PhD Mucinous adenocarcinoma of ascending colon (Primary Dx); Malignant neoplasm of overlapping sites of colon; Mucinous adenocarcinoma of transverse colon; Logan syndrome 05/23/2024 12:55 PM CDT Ancillary Procedure [address] [place] [address] Mariah, Arcelia S, ADVERTISING ACCOUNT MANAGER Malignant neoplasm of overlapping sites of colon 05/22/2024 Orders Only [facility] [address] [place] [address] Main Bldg, 7th [place] [address] Ervin Todd 05/21/2024 1:00 PM CDT Office Visit [facility] - Medical Oncology [address] [place] [address] Arcelia Lemus, ADVERTISING ACCOUNT MANAGER Malignant neoplasm of overlapping sites of colon (Primary Dx) 05/21/2024 12:30 PM CDT NPR [facility] PATIENT ACCESS Arcelia Lemus APRN 05/21/2024 Travel 05/15/2024 Orders Only MD [facility] [address] [place] [id number] Arcelia Lemus, ADVERTISING ACCOUNT MANAGER Malignant neoplasm of overlapping sites of colon (Primary Dx) 03/30/2024 Lab Requisition [facility] Rui Jeffery MD Qiu, Suimin, MD 03/26/2024 8:40 PM CDT Ancillary Procedure [facility] [address] [place] [address] Cancer 03/26/2024 8:35 PM CDT Ancillary Procedure [facility] [address] [place] [address] Cancer 03/26/2024 8:30 PM CDT Ancillary Procedure [facility] [address] [place] [address] Cancer 03/26/2024 8:25 PM CDT Ancillary Procedure [facility] [address] [place] [address] Cancer 03/26/2024 8:20 PM CDT Ancillary Procedure [facility] [address] [place] [address] Cancer after 01/28/2024 Surgical History Surgery Date Site/Laterality Comments COLON SURGERY March/2024 COLONOSCOPY March/2024 ABSCESS DRAINAGE 09/07/2023 - 10/06/2023 Medical History Medical History Date Comments Tooth disorder 2010 Depressive disorder 09/2023 Anxiety 09/2023 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 March/2024 Malignant neoplasm of colon March/2024 Abscess of abdominal wall 09/2023 Social History Tobacco Use Types Packs/Day Years Used Date Smoking Tobacco: Former Cigarettes 1 25 1 998 - 04/04/2024 Electronic cigarette Star sam: 03/2024 Passive Smoke Exposure: Past Smokeless Tobacco: Never Tobacco Cessation:Counseling Given: No Comments:Quit smoking cigarettes currently using a vape to ween off Alcohol Use Standard Drinks/Week Comments Yes 24 (1 standard drink = 0.6 oz pu re alcohol) Sex and Gender Information Value Date Recorded Sex Assigned at Not on file Legal Sex Male 3:36 PM CDT Gender Identity Not on file Sexual Orientation Not on file 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 Not on file Not on file Obstetrics History Last Filed Vital Signs Vital Sign Reading Time Taken Comments Blood Pressure 135/81 05/23/2024 3:18 PM CDT Pulse 69 05/23/2024 3:18 PM CDT Temperature 36.7 C (98.1 F) 05/23/2024 3:18 PM CD T Respiratory Rate 18 05/23/2024 3:18 PM CDT Oxygen Saturation 99% 05/23/2024 3:18 PM CDT Inhaled Oxygen Concentration - - Weight 102.4 kg (225 lb 12 oz) 05/23/2024 3:19 P M CDT Height 186.5 cm (6' 1.43") 05/21/2024 1:12 PM CD T Body Mass Index 29.44 05/21/2024 1:12 PM CDT Plan of Treatment Health Maintenance Due Date Last Done Comments COVID-19 Vaccine (2023-2 5 season) 2024 Influenza Vaccine (#1) 2024 Pneumococcal Vaccine Aged Out No long er eligible based on patient's age to complete this topic Procedures Procedure Name Priority Date/Time Associated Diagnosis Comments CT CHEST ABDOMEN PELVIS W CONTRAST Routine 05/23/2024 3:03 PM CDT Malignant neoplasm of overlapping sites of colon .CBC Routine 05/23/2024 12:37 PM CDT Malignant neoplasm of overlapping sites of colon CARCINOEMBRYONIC ANTIGEN Routine 07/17/2 024 12:37 PM CDT Malignant neoplasm of overlapping sites of colon COMPREHENSIVE METABOLIC PANEL Routine 05/23/2024 12:37 PM CDT Malignant neoplasm of overlapping sites of colon COMPLETE BLOOD COUNT W/ DIFFERENTIAL Routine 05/23/2024 12:37 PM CDT Malignant neoplasm of overlapping sites of colon SIGNATERA RESIDUAL DISEASE TEST MRD SEND OUT Routine 05/23/2024 12:37 PM CDT Malignant neoplasm of overlapping sites of colon SCAN GENETIC TESTING RESULTS 05/23/2024 SCAN GENETIC TESTING RESULTS 05/23/2024 PATHOLOGY OUTSIDE INTERPRETATION Routine 04/04/[address] CHEST Routine 03/19/2024 9:16 PM CDT Cancer PATHOLOGY OUTSIDE INTERPRETATION Routine 03/12/[address] ABDOMEN AND PELVIS Routine 03/01/2024 9:17 PM CDT Cancer after 01/28/2024 Results * CT Chest Abdomen Pelvis with Contrast (05/23/2024 3:03 PM CDT) Anatomical Region Laterality Modality Abdomen, Pelvis, Chest Computed Tomography 05/23/2024 3:07 PM CDT Impressions 05/23/2024 3:27 PM CDT 1. Subtotal colectomy, sigmoidectomy, and primary end-to-end ileorectal anastomosis. 2. Stranding and edema in the sigmoid mesocolon is most likely postsurgical. 3. Several wedge-shaped areas of perfusional variation in the peripheral right liver without evidence of any hepatic metastases nor obvious thrombi in the portal or hepatic vein branches. ACTIONABLE ITEMS/RECOMMENDATIONS*: None. *An Actionable Finding is a finding that may be unrelated to the original reason for imaging but potentially actionable, meaning further investigation may be necessary. The Actionable Findings Vigilance Unit (AFVU) assists medical providers with responding to additional radiologic findings that are unexpected and potentially actionable. Narrative 05/23/2024 3:27 PM CDT FULL RESULT: Examination: CT CHEST ABDOMEN PELVIS W CONTRAST on 05/23/2024 3:03 PM. Clinical History: Malignant neoplasm of overlapping sites of colon. Logan syndrome. Indication: Cancer staging or restaging. [facility] baseline evaluation. Comparison: OSI CT 03/01/2024. Technique: CT CHEST ABDOMEN PELVIS W CONTRAST. Findings: CHEST: Lungs and Pleura: No suspicious pulmonary nodule. Punctate calcified granuloma in the left lower lobe. No consolidation. No pleural effusion. Cardiomediastinum: The heart is normal in size. No pericardial effusion. Lymph nodes: No lymphadenopathy. ABDOMEN AND PELVIS: Hepatobiliary: No suspicious hepatic lesion. Several too small to characterize hypodensities are stable, likely cysts for example in segment 8 (6/160). Several wedge-shaped areas of perfusional variation or right liver. The portal and hepatic veins and their branches appear patent. No biliary dilatation. No cholecystitis. Spleen: No splenomegaly. Few punctate calcified granulomata. Pancreas: No mass or ductal dilatation. Adrenal Glands: No mass. Kidneys, Ureters, Bladder: No hydronephrosis. No suspicious renal lesion. No bladder mass. Gastrointestinal Tract: Subtotal colectomy, sigmoidectomy, and primary end-to-end ileorectal anastomosis. No obstruction. Pelvic Organs: No pelvic mass. Peritoneum/Retroperitoneum: Stranding and edema in the sigmoid mesocolon. No measurable peritoneal nodules. No ascites. Lymph Nodes: No lymphadenopathy. MUSCULOSKELETAL: No suspicious skeletal lesion. Procedure Note Dot Graham MD - 05/23/2024 FULL RESULT: Examination: CT CHEST ABDOMEN PELVIS W CONTRAST on 05/23/2024 3:03 PM. Clinical History: Malignant neoplasm of overlapping sites of colon. Lynchsyndrome. Indication: Cancer staging or restaging. [facility] baselineevaluation. Comparison: OSI CT 03/01/2024. Technique: CT CHEST ABDOMEN PELVIS W CONTRAST. Findings: CHEST: Lungs and Pleura: No suspicious pulmonary nodule. Punctate calcifiedgranuloma in the left lower lobe. No consolidation. No pleural effusion. Cardiomediastinum: The heart is normal in size. No pericardial effusion. Lymph nodes: No lymphadenopathy. ABDOMEN AND PELVIS: Hepatobiliary: No suspicious hepatic lesion. Several too small tocharacterize hypodensities are stable, likely cysts for example in segment8 (6/160). Several wedge-shaped areas of perfusional variation or rightliver. The portal and hepatic veins and their branches appear patent. Nobiliary dilatation. No cholecystitis. Spleen: No splenomegaly. Few punctate calcified granulomata. Pancreas: No mass or ductal dilatation. Adrenal Glands: No mass. Kidneys, Ureters, Bladder: No hydronephrosis. No suspicious renal lesion. No bladder mass. Gastrointestinal Tract: Subtotal colectomy, sigmoidectomy, and [id number] ileorectal anastomosis. No obstruction. Pelvic Organs: No pelvic mass. Peritoneum/Retroperitoneum: Stranding and edema in the sigmoid mesocolon.No measurable peritoneal nodules. No ascites. Lymph Nodes: No lymphadenopathy. MUSCULOSKELETAL: No suspicious skeletal lesion. IMPRESSION: 1. Subtotal colectomy, sigmoidectomy, and primary end-to-end ileorectalanastomosis. 2. Stranding and edema in the sigmoid mesocolon is most likelypostsurgical. 3. Several wedge-shaped areas of perfusional variation in the peripheralright liver without evidence of any hepatic metastases nor obvious thrombiin the portal or hepatic vein branches. ACTIONABLE ITEMS/RECOMMENDATIONS*: None. *An Actionable Finding is a finding that may be unrelated to the originalreason for imaging but potentially actionable, meaning furtherinvestigation may be necessary. The Actionable Findings Vigilance Unit(AFVU) assists medical providers with responding to additional radiologicfindings that are unexpected and potentially actionable. Arcelia Lemus ADVERTISING ACCOUNT MANAGER IMG CT ORDERABLES Final Res ult * [facility] Residual Disease Test MRD-Send out, Blood (05/23/2024 12:37 PM CDT) [facility] MRD 05/24/2024 8:25 AM CDT [facility] Comment:Specimen for Korey/ Signatera testing was obtained, processed and sent out to the [facility]. Refer to the performing lab for results. Blood Peripheral blood specimen / Unknown Venipuncture / Unknown 05/23/2024 12:37 PM CDT 05/23/2024 12:38 PM CDT Arcelia Lemus APRN LAB BLOOD ORDERABLES Final Result [facility] Unless otherwise noted, all lab tests performed by: Division of Pathology and Laboratory Medicine [address] [place] [id number] * .CBC (05/23/2024 12:37 PM CDT) White Blood Cell 6.1 4.1 - 10.5 K/uL 05/23/2024 12:41 PM CDT [facility] Red Blood Cell 5.01 4.30 - 6.04 M/uL 05/23/2024 12:41 PM [facility] Hemoglobin 13.9 13.3 - 17.4 g/dL 05/23/2024 12:41 PM [facility] Hematocrit 41.7 39.5 - 51.8 % 05/23/2024 12:41 PM [facility] Mean Cell Volume 83 82 - 99 fL 05/23/20 12:41 PM [facility] Mean Cell Hemoglobin 27.7 26.6 - 33.2 pg 05/23/2024 12:41 PM [facility] Mean Cell Hemoglobin Concentration 33.3 31.1 - 35.2 g/dL 05/23/2024 12:41 PM [facility] RDW-SD 45.5 37.5 - 49.7 fL 05/23/2024 12:41 PM [facility] Red Cell Diameter Width 14.8 11.6 - 15.5 % 05/23/2024 12:41 PM [facility] Platelet 317 160 - 397 K/uL 05/23/2024 12:41 PM [facility] Mean Platelet Volume 10.6 9.1 - 12.6 fL 05/23/2024 12:41 PM [facility] Neutrophil % 58.9 43.2 - 72.7 % 05/23/2024 12:41 PM [facility] Lymphocyte % 31.8 16.8 - 46.2 % 05/23/2024 12:41 PM [facility] Monocyte % 6.5 5.1 - 12.5 % 05/23/2024 12:41 PM [facility] Eosinophil % 2.1 0.4 - 6.3 % 05/23/2024 12:41 PM [facility] Basophil % 0.5 0.2 - 1.4 % 05/23/2024 12:41 PM [facility] IGRE % 0.2 0.1 - 1.5 % 05/23/2024 12:41 PM [facility] Comment:The IGRE% includes M etamyelocytes, Myelocytes and Promyelocytes. Neutrophil Abs 3.60 1.95 - 7.25 K/uL 05/23/2024 12:41 PM [facility] Lymphocyte Abs 1.94 1.01 - 3.24 K/uL 05/23/2024 12:41 PM [facility] Monocyte Abs 0.40 0.24 - 0.85 K/uL 05/23/2024 12:41 PM [facility] Eosinophil Abs 0.13 0.02 - 0.50 K/uL 05/23/2024 12:41 PM [facility] Basophil Abs 0.03 0.02 - 0.09 K/uL 05/23/2024 12:41 PM [facility] IG Abs 0.01 0.01 - 0.12 K/uL 05/23/2024 12:41 PM [facility] Blood Peripheral blood specimen / Unknown Venipuncture / Unknown 05/23/2024 12:37 PM CDT 05/23/2024 12:38 PM CDT Arcelia Lemus APRN LAB BLOOD ORDERABLES Final Result [facility] [address] [facility], [facility] [address] [place] [address] * (ABNORMAL) Comprehensive Metabolic Panel (05/23/2024 12:37 PM CDT) Bilirubin Total 0.3 0.0 - 1.2 mg/dL 05/23/2024 12:59 PM T [facility] Comment:Indocyanine Green (I CG) may cause falsely elevated bilirubin results. Total and direct bilirubin must not be measured from samples containing indocyanine green. False elevation of total bilirubin can be seen in patients with IgG concentrations above 28 g/L. eGFR 116 >=60 mL/min/1. 73 sq. m 05/23/2024 12:59 PM [facility] Comment: The eGFRcr is calculated with the 2020 CKD-EPI creatinine equation using creatinine, patient's age, and sex for adults 18 years of age and older. Other factors, especially muscle mass, may affect accuracy and need to be considered. According to the Kidney Disease: Improving Global Outcomes (KDIGO) CKD Work Group 2012 Clinical Practice Guideline, chronic kidney disease (CKD) is defined as the abnormalities of kidney structure or function, present for more than 3 months, with implications for health. CKD should be classified by cause, GFR category, and albuminuria category. KDIGO guidelines provide the following GFR categories. Stage / Description / GFR mL/min/1.73 m2: G1* / Normal or high / >= 90 G2* / Mildly decreased / 60-89 G3a / Mildly to moderately decreased / 45-59 G3b / Moderately to severely decreased / 30-44 G4 / Severely decreased / 15-29 G5 / Kidney failure / <15 *In the absence of evidence of kidney damage, neither G1 nor G2 fulfill criteria for CKD. Tot Protein 7.8 6.4 - 8.3 gm/dL 05/23/2024 12:59 PM [facility] Calcium Level Total 9.4 8.2 - 10.2 mg/dL 05/23/2024 12:59 PM [facility] Alkaline Phosphatase 77 40 - 129 U/L 05/23/2024 12:59 PM [facility] Albumin Level 4.4 3.5 - 5.2 gm/dL 05/23/2024 12:59 PM [facility] AST 20 <=40 U/L 05/23/2024 12:59 PM [facility] ALT 28 <=41 U/L 05/23/2024 12:59 PM [facility] Sodium Level 135(L) 136 - 145 mmol/L 05/23/2024 12:59 PM [facility] Potassium Level 4.3 3.4 - 4.5 mmol/L 05/23/2024 12:59 PM [facility] Chloride 104 98 - 107 mmol/L 05/23/2024 12:59 PM CDT [facility] CO2 22 22 - 29 mmol/L 05/23/2024 12:59 PM CDT [facility] Anion Gap 9 4 - 14 mmol/L 05/23/2024 12:59 PM CDT [facility] Creatinine 0.79 0.67 - 1.17 mg/dL 05/23/2024 12:59 PM CDT [facility] BUN 17 6 - 23 mg/dL 05/23/2024 12:59 PM CDT [facility] Glucose Level 109(H) 70 - 99 mg/dL 05/23/2024 12:59 PM CDT [facility] Comment: Effective 06/02/16, the glucose reference intervals have been updated based on [place] Diabetes [employer] guidelines (Standards of Medical Care in Diabetes 2016. Diabetes Care 2016; 39: S13-S22). Fasting blood glucose: Normal: 70-99 mg/dL Impaired fasting glucose (increased risk for diabetes or pre-diabetes): 100-125 mg/dL Diabetes mellitus: >/=126 mg/dL Random blood glucose: Normal: 70-199 mg/dL Note: Random glucose >100 mg/dL is associated with increased risk for diabetes. Blood Peripheral blood specimen / Unknown Venipuncture / Unknown 05/23/2024 12:37 PM CDT 05/23/2024 12:38 PM CDT Arcelia Lemus ADVERTISING ACCOUNT MANAGER LAB BLOOD ORDERABLES Final Result Performing Organization Address City/State/[facility] Co de Phone Number [facility] [address] [facility], [facility] [address] [place] [address] * CEA (05/23/2024 12:37 PM CDT) Carcinoembryonic Antigen 2.1 <=3.8 ng/mL 05/23/2024 1:42 PM CDT [facility] Blood Peripheral blood specimen / Unknown Venipuncture / Unknown 05/23/2024 12:37 PM CDT 05/23/2024 12:38 PM CDT Narrative [facility] - 05/23/2024 1:42 PM CDT Reference Ranges (age 20-69 years): Non-smoker: 0.0 - 3.8 ng/mL Smoker: 0.0 - 5.5 ng/mL This test is measured by electrochemiluminescence immunoassay on Connor Sera immunoassay analyzers. Results obtained in different methods are not interchangeable. us Arcelia S Mariah ZELAYA LAB BLOOD ORDERABLES Final Result [facility] [address] [facility], [facility] [address] [place] [address] * Scan Genetic Testing Results (05/23/2024) Only the most recent of2 resultswithin the time period is included. Narrative 05/23/2024 Ordered by an unspecified provider. us Provider Not In System SCANNED ORDERS Final Res ult * Pathology Outside Interpretation (04/04/2024) Only the most recent of2 resultswithin the time period is included. Materials Received Accession#, Stained, Block, Unstained Collected Received A. [id number], 38 SS, 0 BLOCKS, 0 USS B. [id number], 0 SS, 2 BLOCKS, 0 USS 04/04/2024 04/04/2024 05/28/2024 06/05/2024 07/03/2024 2:24 PM CDT [facility] Addendum 1 This addendum is issued for billing purposes, and there is no change in diagnosis. Mucicarmine was also performed at [facility] using the tumor blocks, which confirms intracytoplasmic mucin in areas of poor differentiation. 07/03/2024 2:24 PM CDT [facility] Addendum electronically signed by Iman London MD on 07/03/2024 at 2:24 PM Diagnosis Outside ([id number], 38 SS, 0 BLOCKS, 0 USS, collected on 04/04/2024): A. Colon, subtotal colectomy: ADENOCARCINOMA, POORLY-DIFFERENTIAT ED WITH MUCINOUS FEATURES, PER REPORT, GREATEST DIMENSION - 9 CM, IN ASCENDING COLON. TUMOR INVADES INTO PERICOLONIC SOFT TISSUE. No lymphovascular invasion or perineural invasion identified. Surgical resection margins free of malignancy. Twenty one lymph nodes, no tumor present (0/21), and no tumor deposits identified. Separate tubular adenoma in transverse colon. Per report, there is loss of nuclear staining for PMS2, and intact staining for MLH1, MSH2, and MSH6, favoring a high microsatellite insufficiency. B. Colon, additional sigmoid, sigmoidectomy: Colonic tissue with no pathologic changes C. Ileum, donut, resection: Small intestine tissue with no pathologic changes D. Colon, rectum donut, resection: Colonic tissue with no pathologic changes 07/03/2024 2:24 PM CDT [facility] Comment Charge Note: Additional material was requested for further workup at [facility]. The tumor cells are negative for synaptophysin and INSM1. 07/03/2024 2:24 PM CDT [facility] Biomarker Block(s) Tumor block: A9 Normal block: A18 07/03/2024 2:24 PM CDT [facility] Disclaimer "Some tests reported here may have been developed and performance characteristics determined by [facility] Medicine. These tests have not been specifically cleared or approved by the U.S. Food and Drug Administration. If applicable, controls were reviewed and showed appropriate reactivity." 07/03/2024 2:24 PM CDT [facility] Tissue 04/04/2024 05/28/2024 10: 20 AM CDT Tissue specimen (specimen) 04/04/2024 06/05/2024 10:16 AM CDT Lydia Loja MD LAB PATHOLOGY ORDERABLES Edited Result - Final [facility] [address] [place] [id number], [place] * OSI CT Chest (03/19/2024 9:16 PM CDT) Narrative Systemgenerated, Documentation - 03/26/2024 9:16 PM CDT Study acquired at another institution. For comparison only. No [facility] originated interpretation requested or available. Jcarlos Oreilly MD IMG OUTSIDE IMAGE ORDERABLES F inal Result * OSI CT Abdomen and Pelvis (03/01/2024 9:17 PM CDT) Narrative Systemgenerated, Documentation - 03/26/2024 9:17 PM CDT Study acquired at another institution. For comparison only. No MD [facility]erson originated interpretation requested or available. Jcarlos Oreilly MD IMG OUTSIDE IMAGE ORDERABLES F inal Result after 01/28/2024 Care Teams Ratoprinter Relationship Specialty Start Date End Date Arcelia Lemus APRN [address] [place] [phone] [email or web address] PCP - General Medical Oncology 03/27/24 Ny Quijano MD [address] [place] [phone] [email or web address] PCP - External Referring Colorectal Surgery 03/27/24 Ny Quijano MD [address] [place] [phone] [email or web address] [email or web address] - External Primary Care Provider Colorectal Surgery 03/27/24
[2025-01-27] MEDS ORDERED: ONDANSETRON 4 MG/2 ML VIAL ONE (22:33)
[2025-01-27] MEDS ORDERED: FAMOTIDINE 20 MG/2 ML VIAL IV ONE (22:34)
[2025-01-27] MEDS ORDERED: KETOROLAC 30 MG/ML INJ ONE (22:34)
[2025-01-27] MEDS ORDERED: NA CHLORIDE 0.9% 2,000 ML ONE (22:34)
[2025-01-27 22:41] LABS: Absolute Lymphocytes (CBC) 1.5 K/uL (0.7-4.9); Absolute Monocytes 0.5 K/uL (0.1-1.3); Absolute Neutrophil 2.5 K/uL (1.8-8.0); Basophils % 0.9 % (0-1.3); Eosinophils % 0.5 % (0-4.4); Hematocrit 43.2 % (39.6-49.0); Hemoglobin 14.9 g/dL (13.6-17.9); Lymphocytes % 33.4 % (15.3-44.8); MCH 29.5 pg (27.0-35.0); MCHC 34.5 g/dL (32.0-36.0); MCV 85.4 fL (80-100); MPV 9.3 fL (7.6-11.3); Monocytes % 10.9 % (3.3-12.3); Neutrophils % 54.3 % (41.7-73.7); Nucleated Red Blood Cells % 0.1 % (0-0); Platelets 187 thou/uL (152-406); RBC Red Blood Cell Count 5.05 M/uL (4.33-5.43); Red Cell Distribution Width 14.3 % (12.1-15.2)
[2025-01-27 22:55] LABS: Albumin 3.5 g/dL (3.4-5.0); Albumin/Globulin Ratio 0.8 (1.1-1.8); Anion Gap 9.3 mEq/L (5.0-15.0); Bilirubin Total 0.3 mg/dL (0.2-1.0); C-Reactive Protein 23.8 mg/L (<3.00); Globulin 4.4 g/dL (2.3-3.5); Potassium 3.3 mEq/L (3.5-5.1); Protein, Total 7.9 g/dL (6.4-8.2)
[2025-01-27 23:09] LABS: Influenza A Ag Negative; Influenza B Ag Negative
[2025-01-27 23:10] LABS: SARS-CoV-2 Antigen Rapid Res Positive (Negative)
--- NOTE | 2025-01-28 00:25 | EDPHYS ---
Physician Documentation [facility] Name: Abhinav Laboy Age: 39 yrs Sex: Male : 1985 Arrival Date: 01/27/2025 Time: 21:57 Bed 20 Private MD: ED Physician Ian Carias HPI: 01/27 22:07 This 39 yrs old Male presents to ER via Unassigned with complaints of sp4 Weakness, Nausea/Vomiting. Historical: - Allergies: 22:31 No Known Allergies; vc1 - Home Meds: 22:31 None [Active]; vc1 - PMHx: 22:31 colon cancer; vc1 - PSHx: 22:31 colon resection; vc1 - Immunization history:: Client reports having NOT received the Covid vaccine. - Infectious Disease History:: Denies. - Social history:: Smoking status: Patient denies any tobacco usage or history of. Vital Signs: 22:24 BP 142 / 87; Pulse 82; Resp 20; Temp 98.8; Pulse Ox 93% ; Weight 108.86 kg; Height 6 vc1 ft. 3 in. ; Pain 7/10; 01/28 00:09 BP 136 / 76; Pulse 66; Resp 16; Pulse Ox 97% on R/A; jb4 01/27 22:24 Body Mass Index 30.00 (108.86 kg, 190.5 cm) vc1 01/27 22:24 Pain Scale: Adult vc1 MDM: 01/27 22:14 Medical Screening Exam initiated sp4 01/27 22:14 Order name: CBC with Diff; Complete Time: 00:18 sp4 01/27 22:14 Order name: CMP; Complete Time: 00:18 sp4 01/27 22:14 Order name: Lipase; Complete Time: 00:18 sp4 01/27 22:14 Order name: COVID-19 Ag + Flu A+B Ag; Complete Time: 00:18 sp4 01/27 22:14 Order name: CRP; Complete Time: 00:18 sp4 01/27 22:44 Order name: Chest Single View XRAY sp4 01/27 22:14 Order name: IV Saline Lock; Complete Time: 22:47 sp4 01/27 22:14 Order name: Labs collected and sent; Complete Time: 22:47 sp4 Administered Medications: 22:47 Drug: TORadol - Ketorolac IVP 30 mg IVP once Route: IVP; Site: right hand; jb4 23:15 Follow up: Response: No adverse reaction; Marked relief of symptoms; Pain is decreased jb4 22:47 Drug: Ondansetron IVP 8 mg IVP once; over 2 minutes Route: IVP; Site: right hand; jb4 23:15 Follow up: Response: No adverse reaction; Marked relief of symptoms jb4 22:47 Drug: NS 0.9% IV 1000 ml IV at 1 bolus Per protocol; to be given as a bolus over 60 jb4 minutes Route: IV; Rate: 1 bolus; Site: right hand; 23:50 Follow up: Response: No adverse reaction; Marked relief of symptoms; IV Status: jb4 Completed infusion; IV Intake: 1000ml 22:47 Drug: NS 0.9% IV 1000 ml IV at 1 bolus Per protocol; to be given as a bolus over 60 jb4 minutes Route: IV; Rate: 1 bolus; Site: right hand; 23:50 Follow up: Response: No adverse reaction; Marked relief of symptoms; IV Status: jb4 Completed infusion; IV Intake: 1000ml 22:53 Drug: Famotidine IVP 20 mg IVP once; dilute with 10 mL 0.9% NaCl; give over 2 minutes jb4 Route: IVP; Site: right hand; 23:15 Follow up: Response: No adverse reaction; Marked relief of symptoms jb4 Disposition Summary: 01/28/25 00:24 Discharge Ordered Notes: Location: Home sp4 Problem: new sp4 Symptoms: have improved sp4 Condition: Stable sp4 Diagnosis - Acute COVID-19 , Acute Viral Illness sp4 Followup: sp4 - With: Private Physician - When: 7 - 10 days - Reason: Recheck today's complaints Discharge Instructions: - Discharge Summary Sheet sp4 - COVID-19 sp4 Forms: - Work release form sp4 - Patient Portal Instructions sp4 Prescriptions: - Ibuprofen 800 mg Oral tablet - take 1 tablet ORAL route every 6 hours As needed PRN fever; 50 tablet; Refills: sp4 0, Product Selection Permitted - Lomotil 2.5-0.025 mg Oral tablet - take 1 tablet ORAL route every 6 hours As needed; 30 tablet; Refills: 0, sp4 Product Selection Permitted - ondansetron 8 mg Oral Tablet,disintegrating - take 1 tablet ORAL route every 8 hours PRN nausea; 30 tablet; Refills: 0, sp4 Product Selection Permitted Addendum: 01/29/2025 01:18 Addendum: Patient presents with acute nausea vomiting and generalized weakness. Patient s p4 reported fever and chills. ROS positive for nausea vomiting fever chills and generalized weakness. . 01:19 Addendum: PE - Constitutional: This is a well developed, well nourished patient who is s p4 awake, alert, sp4 and in no acute distress. Head/Face: Normocephalic, atraumatic. Eyes: Pupils equal round and reactive to light, extra-ocular motions intact. Lids and lashes normal. Conjunctiva and sclera are not injected. Cornea within normal limits. Periorbital areas with no swelling, redness, or edema. ENT: Nares patent. No nasal discharge, no septal abnormalities noted. Tympanic membranes are normal and external auditory canals are clear. Oropharynx with no redness, swelling, or masses, exudates, or evidence of obstruction, uvula midline. Mucous membranes moist. Neck: Trachea midline, no thyromegaly or masses palpated, and no cervical lymphadenopathy. Supple, full range of motion without nuchal rigidity, or vertebral point tenderness. Chest/axilla: Normal chest wall appearance and motion. Nontender with no deformity. No lesions are appreciated. Cardiovascular: Regular rate and rhythm with a normal S1 and S2. No gallops, murmurs, or rubs. Normal PMI, no JVD. No pulse deficits. Respiratory: Lungs have equal breath sounds bilaterally, clear to auscultation and percussion. No rales, rhonchi or wheezes noted. No increased work of breathing, no retractions or nasal flaring. Abdomen/GI: Soft, with normal bowel sounds. No distension or tympany. No guarding or rebound. No evidence of tenderness throughout. Back: No spinal tenderness. No costovertebral tenderness. Skin: Warm, dry with normal turgor. Normal color with no rashes, no lesions, and no evidence of cellulitis. MS/ Extremity: Pulses equal, no cyanosis. Neurovascular intact. Full, normal range of motion. Neuro: Awake and alert, GCS 15, oriented to person, place, time, and situation. Cranial nerves II-XII grossly intact. Motor strength 5/5 in all extremities. Sensory grossly intact. Psych: Awake, alert, with orientation to person, place and time. Behavior, mood, and affect are within normal limits. Signatures: Dispatcher [employer] EDMS Tai Reynoso, RN RN jb4 Anny Herrera RN RN vc1 Ian Carias MD MD sp4 Corrections: (The following items were deleted from the chart) 01/27 22:14 22:14 CBC+H.LAB.BRZ ordered. EDMS EDMS 22:14 22:14 COMPREHENSIVE METABOLIC PANEL+C.LAB.BRZ ordered. EDMS EDMS 22:14 22:14 LIPASE+C.LAB.BRZ ordered. EDMS EDMS 22:15 22:14 COVID-19 Ag + Flu A+B Ag+I.LAB.BRZ ordered. EDMS EDMS 22:15 22:14 C-REACTIVE PROTEIN+C.LAB.BRZ ordered. EDMS EDMS
--- NOTE | 2025-01-28 00:25 | ER ---
Nurse's Notes [facility] Name: Abhinav Laboy Age: 39 yrs Sex: Male : 1985 Arrival Date: 01/27/2025 Time: 21:57 Bed 20 Private MD: Diagnosis: Acute COVID-19 , Acute Viral Illness Presentation: 01/27 22:24 Chief complaint: Patient states: sick since yesterday morning. Dizzy, cold sweats, vc1 shaking, coughing, sore throat, vomiting, headache, and weak. Coronavirus screen: Client denies travel out of the [place] in the last 14 days. At this time, the client does not indicate any symptoms associated with coronavirus-19. Ebola Screen: Patient negative for fever greater than or equal to 101.5 degrees Fahrenheit, and additional compatible Ebola Virus Disease symptoms Patient denies exposure to infectious person. Patient denies travel to an Ebola-affected area in the 21 days before illness onset. No symptoms or risks identified at this time. Initial Sepsis Screen: Does the patient meet any 2 criteria? No. Patient's initial sepsis screen is negative. Does the patient have a suspected source of infection? No. Patient's initial sepsis screen is negative. Risk Assessment: Do you want to hurt yourself or someone else? Patient reports no desire to harm self or others. Onset of symptoms was January 26, 2025. Care prior to arrival: None. Activity prior to arrival: None. 22:24 Method Of Arrival: Ambulatory vc1 22:24 Acuity: PEPE 3 vc1 Historical: - Allergies: 22:31 No Known Allergies; vc1 - Home Meds: 22:31 None [Active]; vc1 - PMHx: 22:31 colon cancer; vc1 - PSHx: 22:31 colon resection; vc1 - Immunization history:: Client reports having NOT received the Covid vaccine. - Infectious Disease History:: Denies. - Social history:: Smoking status: Patient denies any tobacco usage or history of. Screenin:48 [facility] ED Fall Risk Assessment (Adult) History of falling in the last 3 months, jb4 including since admission No falls in past 3 months (0 pts) Confusion or Disorientation No (0 pts) Intoxicated or Sedated No (0 pts) Impaired Gait No (0 pts) Mobility Assist Device Used No (0 pt) Altered Elimination No (0 pt) Score/Fall Risk Level 0 - 2 = Low Risk Oriented to surroundings, Maintained a safe environment. Abuse screen: Denies threats or abuse. Nutritional screening: No deficits noted. Tuberculosis screening: No symptoms or risk factors identified. Assessment: 22:48 General: Appears in no apparent distress. comfortable, Behavior is calm, cooperative, jb4 appropriate for age. Pain: Complains of pain in mid-sternal area Pain does not radiate. Pain currently is 7 out of 10 on a pain scale. Neuro: Level of Consciousness is awake, alert, obeys commands, Oriented to person, place, time, situation. Cardiovascular: Patient's skin is warm and dry. Respiratory: Airway is patent Respiratory effort is even, unlabored, Respiratory pattern is regular, symmetrical. GI: Reports nausea, vomiting. Derm: Skin is intact, Skin is pink, warm \T\ dry. 01/28 00:08 Reassessment: Patient appears in no apparent distress at this time. Patient and/or jb4 family updated on plan of care and expected duration. Pain level reassessed. Patient is alert, oriented x 3, equal unlabored respirations, skin warm/dry/pink. Vital Signs: 01/27 22:24 BP 142 / 87; Pulse 82; Resp 20; Temp 98.8; Pulse Ox 93% ; Weight 108.86 kg; Height 6 vc1 ft. 3 in. ; Pain 7/10; 01/28 00:09 BP 136 / 76; Pulse 66; Resp 16; Pulse Ox 97% on R/A; jb4 01/27 22:24 Body Mass Index 30.00 (108.86 kg, 190.5 cm) vc1 01/27 22:24 Pain Scale: Adult vc1 ED Course: 01/27 22:05 Patient arrived in ED. gm2 22:06 Ian Carias MD is Attending Physician. sp4 22:21 Tai Reynoso, RN is Primary Nurse. jb4 22:31 Triage completed. vc1 22:40 Initial lab(s) drawn, by me, sent to lab. Inserted saline lock: 20 gauge in left hand, jb4 using aseptic technique. Blood collected. 22:48 Patient has correct armband on for positive identification. Bed in low position. Call jb4 light in reach. Side rails up X 1. Provided Education on: plan of care. 23:00 Chest Single View XRAY In Process Unspecified. EDMS 01/28 00:38 No provider procedures requiring assistance completed. IV discontinued, intact, jb4 bleeding controlled, No redness/swelling at site. Pressure dressing applied. Administered Medications: 01/27 22:47 Drug: TORadol - Ketorolac IVP 30 mg IVP once Route: IVP; Site: right hand; jb4 23:15 Follow up: Response: No adverse reaction; Marked relief of symptoms; Pain is decreased jb4 22:47 Drug: Ondansetron IVP 8 mg IVP once; over 2 minutes Route: IVP; Site: right hand; jb4 23:15 Follow up: Response: No adverse reaction; Marked relief of symptoms jb4 22:47 Drug: NS 0.9% IV 1000 ml IV at 1 bolus Per protocol; to be given as a bolus over 60 jb4 minutes Route: IV; Rate: 1 bolus; Site: right hand; 23:50 Follow up: Response: No adverse reaction; Marked relief of symptoms; IV Status: jb4 Completed infusion; IV Intake: 1000ml 22:47 Drug: NS 0.9% IV 1000 ml IV at 1 bolus Per protocol; to be given as a bolus over 60 jb4 minutes Route: IV; Rate: 1 bolus; Site: right hand; 23:50 Follow up: Response: No adverse reaction; Marked relief of symptoms; IV Status: jb4 Completed infusion; IV Intake: 1000ml 22:53 Drug: Famotidine IVP 20 mg IVP once; dilute with 10 mL 0.9% NaCl; give over 2 minutes jb4 Route: IVP; Site: right hand; 23:15 Follow up: Response: No adverse reaction; Marked relief of symptoms jb4 Medication: 22:48 VIS not applicable for this client. jb4 Intake: 23:50 IV: 1000ml; Total: 1000ml. jb4 23:50 IV: 1000ml; Total: 2000ml. jb4 Outcome: 01/28 00:24 Discharge ordered by . sp4 00:38 Discharged to home ambulatory, jb4 00:38 Condition: stable 00:38 Discharge instructions given to patient, Instructed on discharge instructions, follow up and referral plans. medication usage, Demonstrated understanding of instructions, follow-up care, medications, Prescriptions given X 3, 00:40 Patient left the ED. jb4 Signatures: Dispatcher [employer] Tai Phelps RN RN jb4 Anny Herrera RN RN vc1 Ian Carias MD MD sp4 Paula Dixon gm2
[2025-01-28 00:45] VITALS: TEMP 98.8
[2025-01-28 00:46] VITALS: BP 136/76; O2SAT 97
--- NOTE | 2025-01-28 06:13 | RAD REPORT ---
EXAM: ONE VIEW CHEST X-RAY INDICATION: desaturation. 39-year-old female. COMPARISON: No relevant imaging studies FINDINGS: 2 AP upright views of the chest were obtained. No consolidation, pulmonary venous hypertension, pneumothorax, or significant pleural effusion. Cardiac silhouette is normal in size. No acute osseous abnormality. IMPRESSION: 1. No acute cardiopulmonary process. Electronically signed by: Abhinav Terrazas MD 01/27/2025 11:33 PM CDT RP Due to temporary technical issues with the PACS/[employer] reporting system, reports are being tiffanie d by the in-house radiologist without review as a courtesy to ensure prompt reporting the interpreting radiologist is fully responsible for the content of the report. Transcribed Date/Time: 01/28/2025 6:12 AM
== END 2025-01-28 00:40 | disposition home or self-care (01) ==
LOC: ER 21:57
DX: U07.1 COVID-19 (principal)
CPT/HCPCS: 36415; 71045; 80053; 83690; 85025; 86140; 87428; 96361; 96374; 96375; 99284; J2405; J7030